=== PATIENT | male | born 1970 | race Caucasian/White ===

== ENCOUNTER 2018-04-26 10:29 | Inpatient (IN) | payer OTHER ==
[2018-04-26] MEDS: morphine 4 MG/ML VIAL IV (11:21)
[2018-04-26] MEDS: ONDANSETRON 4 MG INJ IV (11:21)
[2018-04-26] MEDS: SOD CHLORIDE 0.9% 1,000 ML IV ×2 (11:24→14:15)
[2018-04-26 11:27] LABS: ADD MAN DIFF? NO
[2018-04-26 11:30] LABS: BASOPHILS % 0.1 % (0.0-2.0); EOSINOPHILS # 0.1 10^3/ul (0.0-0.5); EOSINOPHILS % 1.2 % (0.0-7.0); HEMATOCRIT 42.4 % (42.0-52.0); HEMOGLOBIN 14.7 g/dl (14.0-18.0); LYMPHOCYTES # 1.6 10^3/ul (0.8-2.9); MEAN CORPUSCULAR HEMOGLOBIN 30.6 pg (29.0-33.0); MEAN CORPUSCULAR HGB CONC 34.7 g/dl (32.0-37.0); MEAN CORPUSCULAR VOLUME 88.1 fl (82.0-101.0); MEAN PLATELET VOLUME 9.2 fl (7.4-10.4); MONOCYTE # 0.5 10^3/ul (0.3-0.9); MONOCYTES % 6.8 % (0.0-11.0); NEUTROPHIL # 5.3 10^3/ul (1.6-7.5); NEUTROPHILS % 70.1 % (39.0-77.0); PLATELET COUNT 179 10^3/UL (140-415); RED BLOOD COUNT 4.81 10^6/ul (4.70-6.10); RED CELL DISTRIBUTION WIDTH 12.4 % (11.5-14.5)
[2018-04-26 11:30] LABS: WHITE BLOOD COUNT 7.5 10^3/ul (4.8-10.8)
[2018-04-26 11:47] LABS: ALANINE AMINOTRANSFERASE 170 IU/L (13-69); ALBUMIN 4.5 g/dl (3.3-4.9); ALKALINE PHOSPHATASE 72 IU/L (42-121); AMYLASE 79 U/L (11-123); ANION GAP 11 (5-13); ASPARTATE AMINO TRANSFERASE 61 IU/L (15-46); BILIRUBIN,INDIRECT 0.3 mg/dl (0-1.1); BILIRUBIN,TOTAL 0.3 mg/dl (0.2-1.3); BLOOD UREA NITROGEN 17 mg/dl (7-20); CARBON DIOXIDE 24 mmol/L (21-31); CHLORIDE 105 mmol/L (97-110); CREATININE 0.92 mg/dl (0.61-1.24); Estimated GFR > 60 mL/min (>60); GLUCOSE 87 mg/dl (70-220); LIPASE 155 U/L (23-300); POTASSIUM 4.8 mmol/L (3.5-5.1); SODIUM 140 mmol/L (135-144); TOTAL PROTEIN 7.3 g/dl (6.1-8.1)
[2018-04-26 11:49] LABS: INR 0.85; PROTIME 11.7 Sec (11.9-14.9); PT RATIO 0.9
[2018-04-26 11:50] LABS: PARTIAL THROMBOPLASTIN TIME 28.8 Sec (23.0-35.0)
[2018-04-26] MEDS ORDERED: NACL 0.9% 3 ML SYG IV (14:00)
[2018-04-26] MEDS ORDERED: ACETAMINOPHEN 325 MG TAB PO (14:00)
[2018-04-26] MEDS ORDERED: PIPER-TAZO 2.25 GM (PMX) 50 ML IVPB (14:00)
[2018-04-26] MEDS ORDERED: ONDANSETRON 4 MG INJ IV (14:00)
[2018-04-26] MEDS: PIPER-TAZO 3.375 GM IV (PMX) 100 ML IVPB ×2 (14:14→22:33)
[2018-04-26] MEDS: DEXTROSE 5%-0.45% NACL 1,000 ML IV ×2 (15:08→23:58)
[2018-04-26] MEDS: morphine 2 MG INJ IV (17:28)
[2018-04-27] MEDS: DEXTROSE 5%-0.45% NACL 1,000 ML IV (01:29)
[2018-04-27] MEDS: PIPER-TAZO 3.375 GM IV (PMX) 100 ML IVPB ×2 (05:29→14:02)
[2018-04-27] MEDS: PANTOPRAZOLE 40 MG INJ IV (05:29)
[2018-04-27 06:11] LABS: ADD MAN DIFF? NO
[2018-04-27 06:14] LABS: WHITE BLOOD COUNT 5.3 10^3/ul (4.8-10.8)
[2018-04-27 06:14] LABS: BASOPHILS % 0.4 % (0.0-2.0); EOSINOPHILS # 0.1 10^3/ul (0.0-0.5); EOSINOPHILS % 2.6 % (0.0-7.0); HEMATOCRIT 38.3 % (42.0-52.0); HEMOGLOBIN 13.2 g/dl (14.0-18.0); LYMPHOCYTES # 1.8 10^3/ul (0.8-2.9); LYMPHOCYTES % 34.3 % (15.0-51.0); MEAN CORPUSCULAR HEMOGLOBIN 30.4 pg (29.0-33.0); MEAN CORPUSCULAR HGB CONC 34.5 g/dl (32.0-37.0); MEAN CORPUSCULAR VOLUME 88.2 fl (82.0-101.0); MEAN PLATELET VOLUME 9.5 fl (7.4-10.4); MONOCYTE # 0.5 10^3/ul (0.3-0.9); MONOCYTES % 8.8 % (0.0-11.0); NEUTROPHIL # 2.8 10^3/ul (1.6-7.5); NEUTROPHILS % 53.3 % (39.0-77.0); PLATELET COUNT 167 10^3/UL (140-415); RED BLOOD COUNT 4.34 10^6/ul (4.70-6.10); RED CELL DISTRIBUTION WIDTH 12.7 % (11.5-14.5)
[2018-04-27 06:53] LABS: ALANINE AMINOTRANSFERASE 113 IU/L (13-69); ALBUMIN 3.5 g/dl (3.3-4.9); ALBUMIN/GLOBULIN RATIO 1.59; ALKALINE PHOSPHATASE 55 IU/L (42-121); ANION GAP 7 (5-13); ASPARTATE AMINO TRANSFERASE 40 IU/L (15-46); BILIRUBIN,INDIRECT 0.5 mg/dl (0-1.1); BILIRUBIN,TOTAL 0.5 mg/dl (0.2-1.3); BLOOD UREA NITROGEN 12 mg/dl (7-20); CARBON DIOXIDE 26 mmol/L (21-31); CHLORIDE 108 mmol/L (97-110); CREATININE 1.11 mg/dl (0.61-1.24); Estimated GFR > 60 mL/min (>60); GLUCOSE 92 mg/dl (70-220); MAGNESIUM 1.9 mg/dl (1.7-2.5); POTASSIUM 4.2 mmol/L (3.5-5.1); SODIUM 141 mmol/L (135-144); TOTAL PROTEIN 5.7 g/dl (6.1-8.1)
[2018-04-27] MEDS ORDERED: FENTAnyl 50 MCG/ML VIAL (07:58)
[2018-04-27] MEDS ORDERED: ROPIVACAINE 0.5 % 30 ML VIAL (07:59)
[2018-04-27] MEDS ORDERED: FENTAnyl 50 MCG/ML VIAL IV ×2 (08:00)
[2018-04-27] MEDS ORDERED: DIPHENHYDRAMINE 50 MG INJ IV (08:00)
[2018-04-27] MEDS ORDERED: ONDANSETRON 4 MG INJ IV ×2 (08:00→09:30)
[2018-04-27] MEDS ORDERED: HYDROmorphONE 1 MG/5 ML IV SYRINGE IV ×2 (08:00)
[2018-04-27] MEDS ORDERED: METOCLOPRAMIDE 10 MG INJ IV (08:00)
[2018-04-27] MEDS ORDERED: MEPERIDINE 25 MG INJ IV (08:00)
[2018-04-27] MEDS: BUPIVACAINE 0.25%/EPI (MDV) 50 ML VIAL INJ (08:44)
[2018-04-27] MEDS ORDERED: SUGAMMADEX SODIUM 200 MG/2 ML VIAL IV (08:57)
[2018-04-27] MEDS ORDERED: CEFAZOLIN 1 GM INJ (08:57)
[2018-04-27] MEDS ORDERED: ROCURONIUM 50 MG INJ (08:57)
[2018-04-27] MEDS ORDERED: LIDOCAINE 100 MG SYRINGE (08:57)
[2018-04-27] MEDS ORDERED: SUCCINYLCHOLINE CHLORIDE 100 MG/5 ML SYG IV (08:57)
[2018-04-27] MEDS ORDERED: PROPOFOL 20 ML (08:57)
[2018-04-27] MEDS ORDERED: HYDROmorphONE 0.5 MG/0.5 ML SYG IV (09:30)
[2018-04-27] MEDS ORDERED: ACETAMINOPHEN 325 MG TAB PO (09:30)
[2018-04-27] MEDS: HYDROmorphONE 1 MG/5 ML IV SYRINGE IV ×2 (09:44→10:02)
[2018-04-27] MEDS: FENTAnyl 50 MCG/ML VIAL IV ×2 (09:44→10:02)
[2018-04-27] MEDS: D5W-0.45 NACL + KCL 20 MEQ 1,000 ML IV (11:40)
[2018-04-27] MEDS: morphine 2 MG INJ IV (12:53)
[2018-04-27] MEDS: KETOROLAC 15 MG INJ IV (18:55)
[2018-04-28] MEDS ORDERED: ENOXAPARIN 40 MG/0.4 ML SYG SC (07:00)
== END 2018-04-27 19:28 | disposition home or self-care (01) | DRG 419 ==
LOC: E/R 10:29 → 2NE 13:48
PROC: 0FT44ZZ Resection of Gallbladder, Percutaneous Endoscopic Approach (ICD-10-PCS; principal; 2018-04-27 07:30)
DX: K80.00 Calculus of gallbladder with acute cholecystitis without obstruction (principal)
CPT/HCPCS: 76705; 80053; 82150; 83690; 83735; 85025; 85610; 85730; 88304; 90686; 96361; 96374; 96375; 99285-25